=== PATIENT | male | born 1935 | race Caucasian/White ===

== ENCOUNTER → 2017-12-30 | Outpatient (CLI) | payer MEDICARE, OTHER ==
[~2017-12-30] MED LIST: ASPI-496 PO; CIPR500T3 PO; FINA5TAB4 PO; GEMF600T3 PO; IRON PO; MULT-658 PO; OXYC1TAB7 PO; SAW/1TAB2 PO; TAMS-11 PO; TAMS0.4C2 PO
[2017-12-30 15:44] LABS: BASOPHILS # (AUTO) 0.03 x10^3/uL (0-0.1); BASOPHILS % (AUTO) 0 % (0-1); EOSINOPHILS # (AUTO) 0.22 x10^3/uL (0-0.4); EOSINOPHILS % (AUTO) 3 % (1-7); LYMPHOCYTES # (AUTO) 1.91 x10^3/uL (1-3.4); LYMPHOCYTES % (AUTO) 28 % (22-44); MD NO; MEAN CORPUSCULAR HEMOGLOBIN 31.1 pg (27.5-34.5); MEAN CORPUSCULAR HGB CONC 34.6 g/dL (33.2-36.2); MEAN CORPUSCULAR VOLUME 89.8 fL (81-97); MONOCYTES # (AUTO) 0.57 x10^3/uL (0.2-0.8); MONOCYTES % (AUTO) 8 % (2-9); NEUTROPHILS # (AUTO) 4.06 x10^3/uL (1.8-6.8); NEUTROPHILS % (AUTO) 60 % (42-75); PLATELET COUNT 190 x10^3/uL (130-400); RED BLOOD COUNT 4.96 x10^6/uL (4.38-5.82); RED CELL DISTRIBUTION WIDTH 14.4 % (9.4-14.8)
[2017-12-30 15:45] LABS: MICROSCOPIC NOT IND
[2017-12-30 15:51] LABS: ALANINE AMINOTRANSFERASE 23 U/L (12-78); ALBUMIN 3.6 g/dL (3.4-5.0); ANION GAP 6 mmol/L (5-15); CALCIUM 8.6 mg/dL (8.5-10.1); CHLORIDE 112 mmol/L (98-107)
[2017-12-30 15:54] LABS: ALKALINE PHOSPHATASE 54 U/L (45-117); BILIRUBIN,TOTAL 0.5 mg/dL (0.2-1.0); CREATININE 1.44 mg/dL (0.7-1.3); TOTAL PROTEIN 6.4 g/dL (6.4-8.2)
== END | disposition home or self-care (01) ==
LOC: STAR 14:36
PROVIDERS: ATTEND Urology
DX: Z01.818 Encounter for other preprocedural examination (principal); N40.1 Benign prostatic hyperplasia with lower urinary tract symptoms; R33.8 Other retention of urine
CPT/HCPCS: 36415; 80053; 81003; 85025; 87077; 87086; 87186; 93005

== ENCOUNTER 2018-01-04 06:45 | Observation (INO) | payer MEDICARE, OTHER ==
[~2018-01-04] VITALS: Ht 177.8 cm; Wt 80.6 kg
[2018-01-04] MEDS ORDERED: LACTATED RINGERS 1,000 ML IV SCH (07:11)
[2018-01-04 07:15] VITALS: BP 145/80
[2018-01-04] MEDS ORDERED: FENTANYL PF 250 MCG/5ML ONE (08:10)
[2018-01-04] MEDS ORDERED: CEFAZOLIN 1,000 MG ONE (09:06)
[2018-01-04] MEDS ORDERED: SUCCINYLCHOLINE 20 MG/ML, 10ML ONE (09:06)
[2018-01-04] MEDS ORDERED: NEOSTIGMINE 1 MG/ML, 10ML ONE (09:06)
[2018-01-04] MEDS ORDERED: ROCURONIUM 10MG/ML,5ML ONE (09:06)
[2018-01-04] MEDS ORDERED: GLYCOPYRROLATE 0.2MG/1ML, 5ML ONE (09:06)
[2018-01-04] MEDS ORDERED: DEXAMETHASONE 4 MG/ML, 1ML ONE (09:06)
[2018-01-04] MEDS ORDERED: ONDANSETRON 2MG/ML, 2ML ONE (09:06)
[2018-01-04] MEDS ORDERED: PROPOFOL 10 MG/ML, 20ML ONE (09:06)
[2018-01-04] MEDS ORDERED: LACTATED RINGERS 1,000 ML ONE (09:10)
[2018-01-04] MEDS ORDERED: EPHEDRINE 50 MG/ML, 1ML ONE (09:10)
[2018-01-04] MEDS ORDERED: LIDOCAINE 2% 100MG/5ML SYRINGE ONE (09:10)
[2018-01-04] MEDS ORDERED: HYDROcodone/APAP 7.5-325MG/15ML UDC PO PRN (11:00)
[2018-01-04] MEDS ORDERED: ACETAMINOPHEN 325 MG TABLET PO PRN (11:00)
[2018-01-04] MEDS ORDERED: FENTANYL PF 100 MCG/2ML IV PRN (11:00)
[2018-01-04] MEDS ORDERED: MORPHINE SULFATE 4 MG/ML, 1ML IVPush PRN (11:00)
[2018-01-04] MEDS ORDERED: OXYcodone 5 MG/5 ML ORAL.SOL UDC PO PRN (11:00)
[2018-01-04] MEDS ORDERED: ONDANSETRON ODT 8 MG PO PRN (11:00)
[2018-01-04] MEDS ORDERED: PROMETHAZINE 25 MG/ML, 1ML IV PRN (11:00)
[2018-01-04 12:15] VITALS: BP 135/76
[2018-01-04] MEDS ORDERED: MORPHINE SULFATE 4 MG/ML, 1ML IV PRN (12:30)
[2018-01-04] MEDS ORDERED: OXYcodone/APAP 5/325MG TABLET PO PRN (12:30)
[2018-01-04] MEDS ORDERED: OPIUM/BELLADONNA SUPP.RECT 16.2-30 MG PR PRN ×2 (12:30)
[2018-01-04] MEDS ORDERED: ONDANSETRON 2MG/ML, 2ML IV PRN (12:30)
[2018-01-04 19:40] VITALS: BP 130/67
[2018-01-04] MEDS: LACTATED RINGERS 1,000 ML IV SCH (20:56)
[2018-01-04 23:55] VITALS: BP 123/56
[2018-01-05 03:34] VITALS: BP 125/65
[2018-01-05] MEDS: LACTATED RINGERS 1,000 ML IV SCH (06:00)
[2018-01-05 07:28] VITALS: BP 137/75
[2018-01-05] MEDS ORDERED: FINASTERIDE 5 MG TABLET PO SCH (09:00)
== END 2018-01-05 12:40 | disposition home or self-care (01) ==
LOC: OUT 06:45 → 4NOR 11:57 → OUT 12:08 → 4NOR 12:09
PROVIDERS: ADMIT Urology; ATTEND Urology
DX: N40.1 Benign prostatic hyperplasia with lower urinary tract symptoms (principal); N13.8 Other obstructive and reflux uropathy; N32.0 Bladder-neck obstruction
CPT/HCPCS: 52648; G0378; J0330; J0690; J1100; J2405; J2704; J2710; J3010; J3490; J7120

== ENCOUNTER → 2018-03-21 | Outpatient (CLI) | payer MEDICARE, OTHER ==
[~2018-03-21] MED LIST changes: +GADOBUTROL 10 MMOL/10 ML VIAL ONE; -GEMF600T3 PO; +GEMF600T4 PO
== END | disposition home or self-care (01) ==
LOC: CFH 14:18
PROVIDERS: ATTEND Family Medicine
DX: I67.1 Cerebral aneurysm, nonruptured (principal); Z85.038 Personal history of other malignant neoplasm of large intestine
CPT/HCPCS: 70544; 70549; 82565; A9585

== ENCOUNTER → 2018-04-21 | Outpatient (CLI) | payer MEDICARE, OTHER ==
[~2018-04-21] MED LIST changes: -GADOBUTROL 10 MMOL/10 ML VIAL ONE
== END | disposition home or self-care (01) ==
LOC: CFH 07:44
PROVIDERS: ATTEND Family Medicine
DX: I07.1 Rheumatic tricuspid insufficiency (principal); I35.8 Other nonrheumatic aortic valve disorders
CPT/HCPCS: 93306

== ENCOUNTER → 2018-09-27 | Outpatient (CLI) | payer MEDICARE, OTHER ==
[~2018-09-27] MED LIST changes: +GADOBUTROL 7.5 MMOL/7.5 ML PFS ONE; -GEMF600T4 PO; +GEMF600T8 PO
== END | disposition home or self-care (01) ==
LOC: CFH 12:43
PROVIDERS: ATTEND Family Medicine
DX: R60.9 Edema, unspecified (principal); D48.1 Neoplasm of uncertain behavior of connective and other soft tissue; M79.662 Pain in left lower leg
CPT/HCPCS: 73720; A9585

== ENCOUNTER → 2019-06-01 | Outpatient (CLI) | payer MEDICARE, OTHER ==
[~2019-06-01] MED LIST changes: -GADOBUTROL 7.5 MMOL/7.5 ML PFS ONE; +LISI2.5T PO; +VIT1CAPS16 PO
[2019-06-01 14:26] LABS: BASOPHILS # (AUTO) 0.03 x10^3/uL (0-0.1); BASOPHILS % (AUTO) 0 % (0-1); EOSINOPHILS # (AUTO) 0.27 x10^3/uL (0-0.4); EOSINOPHILS % (AUTO) 4 % (1-7); LYMPHOCYTES # (AUTO) 2.19 x10^3/uL (1-3.4); LYMPHOCYTES % (AUTO) 30 % (22-44); MD NO; MEAN CORPUSCULAR HEMOGLOBIN 30.5 pg (27.5-34.5); MEAN CORPUSCULAR HGB CONC 33.6 g/dL (33.2-36.2); MEAN CORPUSCULAR VOLUME 90.6 fL (81-97); MEAN PLATELET VOLUME 7.8 fL (7.4-10.4); MONOCYTES # (AUTO) 0.63 x10^3/uL (0.2-0.8); MONOCYTES % (AUTO) 9 % (2-9); NEUTROPHILS # (AUTO) 4.17 x10^3/uL (1.8-6.8); NEUTROPHILS % (AUTO) 57 % (42-75); PLATELET COUNT 199 x10^3/uL (130-400); RED BLOOD COUNT 4.87 x10^6/uL (4.38-5.82); RED CELL DISTRIBUTION WIDTH 14.2 % (9.4-14.8)
[2019-06-01 14:31] LABS: ALANINE AMINOTRANSFERASE 26 U/L (12-78); ALBUMIN 3.7 g/dL (3.4-5.0); ANION GAP 3 mmol/L (5-15); CALCIUM 9.1 mg/dL (8.5-10.1); CHLORIDE 108 mmol/L (98-107); CREATININE 1.56 mg/dL (0.7-1.3)
[2019-06-01 14:33] LABS: ALKALINE PHOSPHATASE 54 U/L (45-117); BILIRUBIN,TOTAL 0.4 mg/dL (0.2-1.0); TOTAL PROTEIN 6.8 g/dL (6.4-8.2)
== END | disposition home or self-care (01) ==
LOC: STAR 13:07
PROVIDERS: ATTEND Student in an Organized Health Care Education/Training Program
DX: Z01.818 Encounter for other preprocedural examination (principal); C73 Malignant neoplasm of thyroid gland; F17.200 Nicotine dependence, unspecified, uncomplicated
CPT/HCPCS: 36415; 80053; 85025; 93005